=== PATIENT | female | born 2000 | race Caucasian/White ===

== ENCOUNTER 2020-11-12 10:48 | Emergency (ER) | payer BC ==
[2020-11-12 11:15] LABS: METHAMPHETAMINES,URINE NEGATIVE (NEGATIVE)
[2020-11-12 11:16] LABS: AMPHETAMINES,URINE NEGATIVE (NEGATIVE); BARBITURATES,URINE NEGATIVE (NEGATIVE); BENZODIAZEPINE,URINE NEGATIVE (NEGATIVE); MDMA (ECSTASY), URINE NEGATIVE (NEGATIVE); METHADONE,URINE NEGATIVE (NEGATIVE); OPIATES,URINE NEGATIVE (NEGATIVE); OXYCODONE,URINE NEGATIVE (NEGATIVE); PHENCYCLIDINE,URINE NEGATIVE (NEGATIVE); TCA,URINE NEGATIVE (NEGATIVE)
[2020-11-12] MEDS ORDERED: Morphine 2 MG/ML SYRINGE IVPUSH ONE (12:31)
[2020-11-12] MEDS ORDERED: Ondansetron 4 MG/2 ML SDV IVPUSH ONE (12:31)
[2020-11-12] MEDS ORDERED: Sodium Chloride 0.9% 1,000 ML IV ONE (12:31)
--- NOTE | 2020-11-12 13:03 | EDM.PDOC ---
ED HPI GENERAL MEDICAL PROBLEM - General Chief Complaint: Abdominal Pain Stated Complaint: ABD PAIN Time Seen by Provider: 11/12/20 12:30 Source of Information: Reports: Patient History Limitations: Reports: No Limitations - History of Present Illness INITIAL COMMENTS - FREE TEXT/NARRATIVE: This 20 yo female patient reports to the ED with right upper quadrant abdominal pain. The patient reports her symptoms started yesterday afternoon at 1600. The patient reports she had not had anything to eat yesterday prior to symptom onset. The patient reports a medical history of depression, but no additional history of abdominal surgeries. Onset Date: 11/11/20 Onset Time: 16:00 Duration: Constant Location: Reports: Abdomen (RUQ) Quality: Reports: Ache, Sharp Severity: Moderate Improves with: Reports: None Worsens with: Reports: None Context: Reports: Other Right Upper Abdomen Pain Score (Numeric/FACES): 5 - Related Data Allergies Allergy/AdvReac Type Severity Reaction Status Date / Time No Known Allergies Allergy Verified 11/12/20 11:09 Home Meds: Home Meds ARIPiprazole [Abilify] 5 mg PO DAILY 11/12/20 [History] Sertraline [Zoloft] 100 mg PO DAILY 11/12/20 [History] Past Medical History - Past Health History Medical/Surgical History: Denies Medical/Surgical History Psychiatric History: Reports: Anxiety, Depression Social & Family History - Tobacco Use Tobacco Use Status *Q: Current Status Unknown - Caffeine Use Caffeine Use: Reports: Soda - Recreational Drug Use Recreational Drug Use: No ED ROS GENERAL - Review of Systems Review Of Systems: Comprehensive ROS is negative, except as noted in HPI. ED EXAM, GI/ABD - Physical Exam Exam: See Below Exam Limited By: No Limitations General Appearance: Alert, WD/WN, Moderate Distress Eyes: Bilateral: Normal Appearance, EOMI Ears: Normal External Exam, Normal Canal, Hearing Grossly Normal, Normal TMs Nose: Normal Inspection, Normal Mucosa, No Blood Throat/Mouth: Normal Inspection, Normal Lips, Normal Teeth, Normal Gums, Normal Oropharynx, Normal Voice, No Airway Compromise Head: Atraumatic, Normocephalic Neck: Normal Inspection, Supple, Non-Tender, Full Range of Motion Respiratory/Chest: No Respiratory Distress, Lungs Clear, Normal Breath Sounds, No Accessory Muscle Use, Chest Non-Tender Cardiovascular: Normal Peripheral Pulses, Regular Rate, Rhythm, No Edema, No Gallop, No JVD, No Murmur, No Rub GI/Abdominal Exam: Normal Bowel Sounds, Soft, Guarding, Tender (RUQ and RLQ). No: Rebound (Female) Exam: Deferred Rectal (Female) Exam: Deferred Back Exam: Normal Inspection, Full Range of Motion, NT Extremities: Normal Inspection, Normal Range of Motion, Non-Tender, Normal Capillary Refill, No Pedal Edema Neurological: Alert, Oriented, CN II-XII Intact, Normal Cognition, Normal Gait, Normal Reflexes, No Motor/Sensory Deficits Psychiatric: Normal Affect, Normal Mood Skin Exam: Warm, Dry, Intact, Normal Color, No Rash Lymphatic: No Adenopathy Course - Vital Signs Last Recorded V/S: Last Vital Signs Temp 97.7 F 11/12/20 11:20 Pulse 89 11/12/20 11:20 Resp 12 11/12/20 11:20 BP 128/78 11/12/20 11:20 Pulse Ox 97 11/12/20 11:20 - Orders/Labs/Meds Labs: Laboratory Tests 11/12/20 11/12/20 11/12/20 Range/Units 10:55 10:55 10:55 WBC (5.0-10.0) 10^3/uL RBC (4.2-5.4) 10^6/uL Hgb (12.0-16.0) g/dL Hct (37.0-47.0) % MCV (80-100) fL MCH (27.0-34.0) pg MCHC (33.0-35.0) g/dL Plt Count (150-450) 10^3/uL Neut % (Auto) (42.2-75.2) % Lymph % (Auto) (20.5-50.1) % [place] % (Auto) (2-8) % Eos % (Auto) (1.0-3.0) % Baso % (Auto) (0.0-1.0) % Sodium (136-145) mmol/L Potassium (3.5-5.1) mmol/L Chloride (98-107) mmol/L Carbon Dioxide (21-32) mmol/L Anion Gap (7-13) mEq/L BUN (7-18) mg/dL Creatinine (0.55-1.02) mg/dL Est Cr Clr Drug Dosing mL/min Estimated GFR (MDRD) BUN/Creatinine Ratio (No establ ref range) Glucose (70-99) mg/dL Calcium (8.5-10.1) mg/dL Total Bilirubin (0.2-1.0) mg/dL AST (15-37) U/L ALT (14-59) U/L Alkaline Phosphatase (46-116) U/L Total Protein (6.4-8.2) g/dL Albumin (3.4-5.0) g/dL Globulin Albumin/Globulin Ratio Amylase (25-115) U/L Lipase (73-393) U/L Urine Color Dark yellow (YELLOW) Urine Appearance Slightly cloudy (CLEAR) Urine pH 6.0 (5.0-9.0) Ur Specific [place] >= 1.030 (1.005-1.030) Urine Protein 30 H (NEGATIVE) Urine Glucose (UA) Negative (NEGATIVE) Urine Ketones Negative (NEGATIVE) Urine Occult Blood Large H (NEGATIVE) Urine Nitrite Negative (NEGATIVE) Urine Bilirubin Small H (NEGATIVE) Urine Urobilinogen 1.0 (0.2-1.0) mg/dL Ur Leukocyte Esterase Negative (NEGATIVE) Urine RBC 5-10 H (0-5) /HPF Urine WBC Not seen (0-5/HPF) /HPF Ur Epithelial Cells Rare (NOT SEEN) /HPF Urine Bacteria Rare (0-FEW/HPF) /HPF Urine Mucus Moderate H (NOT SEEN) /LPF Urine HCG, Qual Negative Urine Opiates Screen Negative (NEGATIVE) Ur Oxycodone Screen Negative (NEGATIVE) Urine Methadone Screen Negative (NEGATIVE) Acetaminophen (10-30 (Therapeutic)) ug/mL Ur Barbiturates Screen Negative (NEGATIVE) U Tricyclic Antidepress Negative (NEGATIVE) Ur Phencyclidine Scrn Negative (NEGATIVE) Ur Amphetamine Screen Negative (NEGATIVE) U Methamphetamines Scrn Negative (NEGATIVE) Urine MDMA Screen Negative (NEGATIVE) U Benzodiazepines Scrn Negative (NEGATIVE) Urine Cocaine Screen Negative (NEGATIVE) U Marijuana (THC) Screen Negative (NEGATIVE) 11/12/20 11/12/20 Range/Units 13:05 13:05 WBC 10.8 H (5.0-10.0) 10^3/uL RBC 4.37 (4.2-5.4) 10^6/uL Hgb 13.0 (12.0-16.0) g/dL Hct 39.4 (37.0-47.0) % MCV 90.2 (80-100) fL MCH 29.7 (27.0-34.0) pg MCHC 33.0 (33.0-35.0) g/dL Plt Count 295 (150-450) 10^3/uL Neut % (Auto) 65.1 (42.2-75.2) % Lymph % (Auto) 27.4 (20.5-50.1) % Hancock % (Auto) 6.6 (2-8) % Eos % (Auto) 0.7 L (1.0-3.0) % Baso % (Auto) 0.2 (0.0-1.0) % Sodium 143 (136-145) mmol/L Potassium 4.3 (3.5-5.1) mmol/L Chloride 106 (98-107) mmol/L Carbon Dioxide 28 (21-32) mmol/L Anion Gap 13.3 H (7-13) mEq/L BUN 15 (7-18) mg/dL Creatinine 0.80 (0.55-1.02) mg/dL Est Cr Clr Drug Dosing 111.27 mL/min Estimated GFR (MDRD) > 60 BUN/Creatinine Ratio 18.8 (No establ ref range) Glucose 94 (70-99) mg/dL Calcium 8.8 (8.5-10.1) mg/dL Total Bilirubin 0.5 (0.2-1.0) mg/dL AST 16 (15-37) U/L ALT 27 (14-59) U/L Alkaline Phosphatase 89 (46-116) U/L Total Protein 7.1 (6.4-8.2) g/dL Albumin 3.3 L (3.4-5.0) g/dL Globulin 3.8 Albumin/Globulin Ratio 0.87 Amylase 42 (25-115) U/L Lipase 189 (73-393) U/L Urine Color (YELLOW) Urine Appearance (CLEAR) Urine pH (5.0-9.0) Ur Specific [place] (1.005-1.030) Urine Protein (NEGATIVE) Urine Glucose (UA) (NEGATIVE) Urine Ketones (NEGATIVE) Urine Occult Blood (NEGATIVE) Urine Nitrite (NEGATIVE) Urine Bilirubin (NEGATIVE) Urine Urobilinogen (0.2-1.0) mg/dL Ur Leukocyte Esterase (NEGATIVE) Urine RBC (0-5) /HPF Urine WBC (0-5/HPF) /HPF Ur Epithelial Cells (NOT SEEN) /HPF Urine Bacteria (0-FEW/HPF) /HPF Urine Mucus (NOT SEEN) /LPF Urine HCG, Qual Urine Opiates Screen (NEGATIVE) Ur Oxycodone Screen (NEGATIVE) Urine Methadone Screen (NEGATIVE) Acetaminophen 0 L (10-30 (Therapeutic)) ug/mL Ur Barbiturates Screen (NEGATIVE) U Tricyclic Antidepress (NEGATIVE) Ur Phencyclidine Scrn (NEGATIVE) Ur Amphetamine Screen (NEGATIVE) U Methamphetamines Scrn (NEGATIVE) Urine MDMA Screen (NEGATIVE) U Benzodiazepines Scrn (NEGATIVE) Urine Cocaine Screen (NEGATIVE) U Marijuana (THC) Screen (NEGATIVE) Meds: Medications Discontinued Medications Generic Name Dose Route Start Last Admin Trade Name Freq PRN Reason Stop Dose Admin Hydromorphone HCl 0.5 mg 11/12/20 13:36 11/12/20 13:43 Hydromorphone 0.5 Mg/0.5 Ml Syringe IVPUSH 11/12/20 13:37 0.5 mg ONETIME ONE Administration Sodium Chloride 1,000 mls @ 500 mls/hr 11/12/20 12:31 11/12/20 12:45 Normal Saline IV 11/12/20 14:30 500 mls/hr .BOLUS ONE Administration Iopamidol 100 ml 11/12/20 15:00 11/12/20 15:13 Iopamidol 612 Mg/Ml 100 Ml Bottle IVPUSH 11/12/20 15:01 100 ml ONETIME ONE Administration Morphine Sulfate 2 mg 11/12/20 12:31 11/12/20 12:46 Morphine 2 Mg/Ml Syringe IVPUSH 11/12/20 12:32 2 mg ONETIME ONE Administration Ondansetron HCl 4 mg 11/12/20 12:31 11/12/20 12:46 Ondansetron 4 Mg/2 Ml Sdv IVPUSH 11/12/20 12:32 4 mg ONETIME ONE Administration Departure - Departure Time of Disposition: 15:46 Disposition: Home, Self-Care 01 Condition: Fair Clinical Impression: Gastroenteritis, Abdominal pain - Discharge Information *PRESCRIPTION DRUG MONITORING PROGRAM REVIEWED*: Not Applicable *COPY OF PRESCRIPTION DRUG MONITORING REPORT IN PATIENT ROBERT: Not Applicable Instructions: Viral Gastroenteritis, Adult, [id number] Forms: ED Department Discharge Care Plan Goals: The patient was advised of the examination, ultrasound, CT and lab results during the visit. The patient was given IV fluids, IV pain medications and IV Zofran while in the ED. The patient was encouraged to stick to a BRAT diet (bananas, rice, applesauce and toast) with small frequent sips of fluid. If the patient has any additional symptoms or concerns, the patient should either return to the emergency department or follow-up with her primary care facility. Sepsis Event Note (ED) - Focused Exam Vital Signs: Vital Signs Temp Pulse Resp BP Pulse Ox 11/12/20 11:20 97.7 F 89 12 128/78 97
[2020-11-12 13:34] LABS: ACETAMINOPHEN 0 ug/mL (10-30 (Therapeutic)); ANION GAP 13.3 mEq/L (7-13); CHLORIDE,CL 106 mmol/L (98-107); SODIUM,NA 143 mmol/L (136-145)
[2020-11-12] MEDS ORDERED: HYDROmorphone 0.5 MG/0.5 ML Syringe IVPUSH ONE (13:36)
--- NOTE | 2020-11-12 14:34 | US ---
EXAMINATION: Abdomen Ltd SEX: Female AGE: 20 years CLINICAL HISTORY: 20-year-old female right upper quadrant (RUQ) pain. Normal WBC. Interpretation: 1. Gallbladder clearly demonstrated right upper quadrant beneath the liver margin. Uniformly thin wall and no pericystic fluid, mucosal wall mass or dependent mobile intraluminal echogenic "shadowing" gallstones. 2. Homogeneous normal sono density of the liver. No intrahepatic mass or intra/extrahepatic biliary ductal dilatation. 3. Pancreas obscured by gas. 4. No ascites. CONCLUSION: Negative gallbladder sonogram.
[2020-11-12] MEDS ORDERED: Iopamidol 612 MG/ML 100 ML Bottle IVPUSH ONE (15:00)
--- NOTE | 2020-11-12 15:29 | CT ---
EXAMINATION: Abdomen Pelvis w Cont SEX: Female AGE: 20 years CLINICAL HISTORY: 20-year-old 300 pound female complaining of right upper quadrant (RUQ) ABDOMINAL PAIN. Serum WBC 10,200. "Negative" gallbladder ultrasound. Scan technique: A volume acquisition of data from the abdomen and pelvis obtained without oral contrast but during the intravenous administration 100 cc nonionic Isovue contrast 3 cc/s via injector while patient was lying supine on the Siemens multislice scanner [place], [place]. All data archived in the PACS system for storage, reformatting axial/sagittal/coronal planes and study. Interpretation: 1. Gallbladder, liver, stomach (small hiatus hernia), spleen, pancreas, adrenal glands anatomically correct i.e. negative. 2. Normal reniform size, axis and configuration. No cystic or solid renal cortical mass lesion, nephrolithiasis or signs of obstructive uropathy i.e. no pyelocaliectasis or ureterectasis. Symmetrically distended normal appearing unenhanced urinary bladder. Midline uterus unremarkable. No adnexal mass lesions. 3. Normal appendix RLQ large and small intestine unremarkable. 4. No abdominal or pelvic mass lesion. No mesenteric or retroperitoneal lymphadenopathy. No inflammatory "dirty" peritoneal fat, signs of mechanical bowel obstruction, ascites or free intraperitoneal air. 5. Lung bases clear. Normal cardiac silhouette. No pericardial or pleural effusions. 6. Normal caliber aortoiliac vessels. Lumbar spine unremarkable. CONCLUSION: Negative gallbladder and kidneys. No sign of appendicitis or acute peritonitis. No abdominal mass lesion or mechanical bowel obstruction. Small hiatus hernia.
== END 2020-11-12 15:56 | disposition home or self-care (01) ==
LOC: DL.ED 10:48
DX: K52.9 Noninfective gastroenteritis and colitis, unspecified (principal)
CPT/HCPCS: 36415; 74177; 76705; 80053; 80143; 80305; 81001; 81025; 82150; 83690; 85025; 96374; 96375; 99284; J1170; J2270; J2405; J7030; Q9967

== ENCOUNTER 2021-03-24 09:13 | Emergency (ER) | payer SELFPAY ==
[2021-03-24 10:36] LABS: CORONAVIRUS COVID-19 NAA NEGATIVE (NEGATIVE); RESPIRATORY SYNCYTIAL VIR NAA NEGATIVE (NEGATIVE)
[2021-03-24] MEDS ORDERED: Ondansetron 4 MG Tab.DIS PO ONE (11:23)
[2021-03-24] MEDS ORDERED: Acetaminophen 500 MG Tab PO ONE (11:23)
[2021-03-24 12:07] LABS: CHLORIDE,CL 102 mmol/L (98-107); SODIUM,NA 139 mmol/L (136-145)
[2021-03-24] MEDS ORDERED: Ketorolac 30 MG/ML SDV IM ONE (13:31)
== END 2021-03-24 13:54 | disposition home or self-care (01) ==
LOC: DL.ED 09:13
DX: G43.009 Migraine without aura, not intractable, without status migrainosus (principal); J06.9 Acute upper respiratory infection, unspecified; E66.9 Obesity, unspecified; Z68.42 Body mass index [BMI] 45.0-49.9, adult; Z20.822 Contact with and (suspected) exposure to COVID-19
CPT/HCPCS: 0241U; 36415; 71045; 80053; 81003; 81025; 82150; 83690; 84484; 85025; 86140; 96372; 99284; A9270; J1885